=== PATIENT | female | born 1975 | race Caucasian/White ===

== ENCOUNTER → 2016-10-01 | Outpatient (CLI) | payer OTHER ==
[~2016-10-01] MED LIST: ASCA500 PO; [UNRECOGNIZED DRUG - CODE] PO
[2016-10-01 13:19] LABS: BASO % 0.4 %; BASO ABS # 0.02 K/uL (0-0.2); COMPLETE YES; EOS % 2.3 %; HEMATOCRIT 36.5 % (37-47); IG% 0.2 %; LYMPH % 22.2 %; LYMPH ABS # 1.15 K/uL (1.2-3.4); MEAN CELL VOLUME 86.9 fL (80-100); MEAN CORPUSCULAR HEMOGLOBIN 29.8 pg (25-34); MEAN CORPUSCULAR HGB CONC 34.2 g/dl (32-36); MEAN PLATELET VOLUME 11.2 fL (7.4-10.4); MONO % 6.4 %; NEUT % 68.5 %; PLATELET COUNT 213 K/uL (130-400); WHITE BLOOD COUNT 5.17 K/uL (4.8-10.8)
== END | disposition home or self-care (01) ==
LOC: MERGE 11:55 → C.LAB1850 11:55
PROVIDERS: ATTEND Obstetrics & Gynecology
DX: N84.0 Polyp of corpus uteri (principal); N92.1 Excessive and frequent menstruation with irregular cycle

== ENCOUNTER → 2016-10-14 | Day surgery (SDC) | payer OTHER ==
[2016-10-05 12:51] VITALS: Ht 174 cm; Wt 67.3 kg
[~2016-10-14] VITALS: Ht 174 cm; Wt 67.3 kg
[~2016-10-14] MED LIST changes: +ATROPINE SULFATE 0.1 MG/ML 5ML SYR IV PRN; +DEXAMETHASONE SOD INJ 4 MG/ML VIAL ONE; +EpHEDrine SULFATE INJ 50 MG/ML AMP IV PRN; +FENTANYL CITRATE INJ 50 MCG/1 ML 2 ML VIAL IV PRN; +FENTANYL CITRATE INJ 50 MCG/1 ML 2 ML VIAL ONE; +HYDROmorphone INJ 1 MG/ML SYR IV PRN; +IBUPROFEN 600 MG TAB PO PRN; +KETOROLAC TROMETHAMINE 30 MG/ML VIAL IV. PRN; +KETOROLAC TROMETHAMINE 30 MG/ML VIAL ONE; +LACTATED RINGER'S 1000ML 1,000 ML IV SCH; +LIDOCAINE HCL 2% 2 ML VIAL (20MG/ML) ONE; +MIDAZOLAM HCL 1 MG/ML 2ML VIAL ONE; +ONDANSETRON INJ 2 MG/ML 2 ML VIAL IV PRN; +ONDANSETRON INJ 2 MG/ML 2 ML VIAL ONE; +OXYCODONE/ACETAMINOPHEN 5-325 TAB PO PRN; +PROMETHAZINE HCL INJ 25 MG in SODIUM CHLORIDE 0.9% 50ML 50 ML IV PRN; +PROPOFOL IV EMULSION 10 MG/ML 20 ML VIAL IV ONE; +SODIUM CHLORIDE 0.9% 1000ML 1,000 ML IV SCH
--- NOTE | 2016-10-14 11:21 | History & Physical Bridge - [place] ---
H&P Re-Evaluation Bridge Note: I have examined the patient, reviewed the History & Physical and in the interval since the performance of the History & Physical I have noted the following changes of clinical significance: No changes noted
--- NOTE | 2016-10-14 12:00 | [facility] Post Operative Brief Note ---
Immediate Operative Summary Operative Date Oct 14, 2016. Pre-Operative Diagnosis Menometrorrhagia, Endometrial Polyp Post-Operative Diagnosis same Procedure(s) Performed Dilatation, Hysteroscopy, Resection of Polypectomy Surgeon Dr. Lares Item Processing Clerk Surgeon(s) 0 Estimated Blood Loss 10ml Findings Benign polyp Specimens A. Endometrial Polyp Drains None Anesthesia General Complication(s) None Disposition Recovery Room / PACU
--- NOTE | 2016-10-14 12:02 | Discharge Instructions ---
Discharge Instructions Admission Reason for Admission: Menometrorrhagia, Endometrial Polyp Discharge Discharge Diagnosis / Problem: endometrial polyp Discharge Goals Goal(s): Routine recovery after surgery Activity Recommendations Activity Limitations: per Instructions/Follow-up section . Instructions / Follow-Up Instructions / Follow-Up ACTIVITY RECOMMENDATIONS: * Avoid tampons, douching, hot tubs, pools, and intercourse until bleeding has stopped. * May shower as usual. * No strenuous activity for 24-48 hours. After 24-48 hours, you may do anything you feel like doing (driving and sports are okay). SPECIAL CARE INSTRUCTIONS: Special Diet: * Mild nausea may occur in the immediate post-operative period. * Take clear liquids such as tea, cola or bouillon until all nausea has subsided; you may then resume your normal diet. Special Care: * Light bleeding and vaginal spotting can last from a few days to 3-4 weeks. Call your doctor if bleeding becomes heavier than the heaviest part of your period. * Check your temperature twice a day for one week. If it goes above 100.4 degrees Fahrenheit (38.0 Celsius), notify your doctor. * Call your doctor's office for an appointment for 6 weeks after your surgery. FOLLOW-UP VISIT: Call your doctor's office for an appointment for 6 weeks after your surgery. Current Hospital Diet Patient's current hospital diet: Discharge Diet Recommended Diet: Regular Diet Procedures Procedures Performed: Dilatation, Hysteroscopy, Resection of Polypectomy Pending Studies Studies pending at discharge: no Medical Emergencies . Who to Call and When: Medical Emergencies: If at any time you feel your situation is an emergency, please call 911 immediately. . Non-Emergent Contact Non-Emergency issues call your: Primary Care Provider . . "Provider Documentation" section prepared by Khari Lares. VTE Core Measure Inpt VTE Proph given/why not?: Treatment not indicated
--- NOTE | 2016-10-14 12:24 | OPERATIVE REPORT ---
DATE OF OPERATION: 10/14/2016 PREOPERATIVE DIAGNOSIS: Menometrorrhagia, endometrial polyp. POSTOPERATIVE DIAGNOSIS: Same. PROCEDURE: Hysteroscopy, resection of endometrial polyp. SURGEON: Dr. Lares. MARKING ROOM SUPERVISOR: None. ESTIMATED BLOOD LOSS: 10 mL. FINDINGS: Benign polyp. SPECIMENS: Endometrial polyp. DRAINS: None. ANESTHETIC: General. COMPLICATIONS: None. DISPOSITION: Recovery room. Estimated losses of normal saline, 25 mL. Mrs. Pop was given a general anesthetic, prepped and draped in dorsal lithotomy position [facility] stirrups. Bladder drained. Uterus examined and found to be retroverted anteflexed. Weighted speculum placed in the vagina. The single tooth tenaculum used to grasp the anterior lip of the cervix and then cervix carefully and methodically dilated. There was a sharp bend to the cervix, but I was able to find the pathway into the uterus starting with #13 dilator, progressed to a #25 dilator. On inspection with the MyoSure hysteroscope, using normal saline as base solution, I was able to visualize the cavity. There was no sign of perforation. Both tubal ostia were visualized, and a benign appearing endometrial polyp was present. Pictures taken for documentation. We then hooked up the MyoSure and then resected the polyp, the MyoSure was only used when the blade was in sight of the asphalt paver operator. Once the polyp was fully resected, pictures were taken. Intravenous Toradol was given. Instruments removed from the cervix and vagina. Sponge and instrument counts correct. The patient sent to recovery room in stable condition. I attest to the content of the Intraoperative Record and any orders documented therein. Any exceptions are noted below. OLIVE
[2016-10-14 13:01] VITALS: TEMP 36.5
--- NOTE | 2016-10-14 13:26 | Anesthesia Progress Nt - [facility] ---
Anesthesia Post Op Note Date & Time Oct 14, 2016 at 13:25 Vital Signs Pain Intensity: 0 Vital Signs Past 12 Hours Date Time Temp Pulse Resp B/P Pulse Ox O2 Delivery O2 Flow Rate FiO2 10/14/16 13:01 36.5 59 14 105/71 98 Room Air 10/14/16 12:55 64 15 99 10/14/16 12:55 64 15 10/14/16 12:53 105/75 10/14/16 12:50 68 19 10/14/16 12:50 68 19 99 10/14/16 12:49 58 15 99 10/14/16 12:49 58 15 10/14/16 12:48 108/72 10/14/16 12:44 74 26 10/14/16 12:44 74 26 99 10/14/16 12:43 101/73 10/14/16 12:42 36.6 62 16 101/69 98 Room Air 10/14/16 12:39 65 16 10/14/16 12:39 67 16 99 10/14/16 12:38 101/69 10/14/16 12:34 60 16 100 10/14/16 12:34 60 16 10/14/16 12:33 58 15 106/70 100 10/14/16 12:33 57 15 10/14/16 12:28 60 15 100/72 100 10/14/16 12:28 59 15 10/14/16 12:23 61 18 10/14/16 12:23 61 18 99/69 100 10/14/16 12:18 61 12 10/14/16 12:18 61 12 101/70 100 10/14/16 12:18 36.4 66 16 102/72 100 Mask 8 10/14/16 11:07 36.6 76 16 109/69 97 Room Air Notes Mental Status: alert / awake / arousable, participated in evaluation Pt Amnestic to Procedure: Yes Nausea / Vomiting: adequately controlled Pain: adequately controlled Airway Patency, RR, SpO2: stable & adequate BP & HR: stable & adequate Hydration State: stable & adequate Anesthetic Complications: no major complications apparent
[2016-10-14 13:28] VITALS: BP 119/71; PULSE 68; O2SAT 100
== END | disposition home or self-care (01) ==
LOC: X.SURG 10:56
PROVIDERS: ATTEND Obstetrics & Gynecology
DX: N92.1 Excessive and frequent menstruation with irregular cycle (principal); N84.0 Polyp of corpus uteri; Z68.22 Body mass index [BMI] 22.0-22.9, adult; Z98.890 Other specified postprocedural states